=== PATIENT | female | born 1970 | race Caucasian/White ===

== ENCOUNTER → 2024-06-16 | Outpatient (CLI) | payer BC ==
[~2024-06-16] MED LIST: PROHANCE 279.3MG/ML 15ML VIAL As Ordered ONE; PROHANCE 279.3MG/ML 5ML VIAL As Ordered ONE
== END ==
LOC: M RAD 14:52
PROVIDERS: ATTEND Nurse Practitioner Family
DX: H93.13 Tinnitus, bilateral (principal); R42 Dizziness and giddiness; M50.21 Other cervical disc displacement, high cervical region
CPT/HCPCS: 70553; 72141; A9576